=== PATIENT | female | born 1955 | race Caucasian/White ===

== ENCOUNTER → 2016-08-15 | Outpatient (CLI) | payer BC ==
[2016-08-15 16:48] VITALS: BP 111/55; PULSE 66; RESP 16; TEMP 98.3; BMI 37.7
[2016-08-15 18:09] LABS: INR 1.8 (<1.1); Partial Thromboplastin Time 28.3 sec (22.0-30.0)
[2016-08-15 18:27] LABS: Calcium 10.1 mg/dL (8.4-10.2); Phosphorous 4.2 mg/dL (2.5-4.5); Total Bilirubin 0.5 mg/dL (0.2-1.3); Total Protein 7.3 g/dL (6.3-8.2)
[2016-08-15 18:37] LABS: % Iron Saturation 10.9 % (20-50)
[2016-08-15 18:45] LABS: CH 28.1; CHCM 31.2; HCT 39.6 % (34.0-46.0); HDW 2.41; HGB 13.2 gm/dL (11.4-16.0); Hypochromasia Slight; MCH 30.2 pg (25.0-35.0); MCHC 33.4 g/dL (31.0-37.0); MCV 90.3 fL (80.0-100.0); Mean Platelet Volume 10.7; RBC 4.38 m/uL (3.80-5.40); WBC 7.6 k/uL (3.8-10.6)
[2016-08-15 21:19] LABS: Hemoglobin A1C 5.8 % (4.2-6.1)
[2016-08-22 15:38] LABS: Selenium 172 mcg/L (63-160)
--- NOTE | 2016-09-20 04:22 | P.PN ---
Progress Note - Text DATE OF SERVICE: 08/15/2016 CHIEF COMPLAINT: Bariatric assessment. HISTORY OF PRESENT ILLNESS: Lamar Cardoso is a 61-year-old female who comes in following a sleeve gastrectomy February 13, 2016. She is now 6 months out. Her ideal body weight for her 5 feet 7-3/4-inch frame is 158 pounds. Her highest weight was 394 pounds. Today she comes in weighing 246 pounds. She has lost 148 pounds in 6 months. Percent excess weight loss is 63%. Body mass index is reduced from 60.5 down to 37.7. Total BMI point reduction is reduced by 22.8. She is 88 pounds overweight. She reports moderate reduction of swelling of the bilateral lower extremities. She reports her goal is to get down to at least 200 pounds. She reports intermittent dizziness. She has been on her hypertensive medications which had moderately improved. PAST MEDICAL HISTORY: 1. Morbid obesity. 2. Gastroesophageal reflux disease. 3. Dyslipidemia. 4. Cardiomyopathy secondary hypertension. 5. Fibromyalgia. 6. Obstructive sleep apnea. PAST SURGICAL HISTORY: 1. . 2. Cholecystectomy. 3. Joint replacement bilateral knees. 4. Tubal ligation. 5. Excision of cyst removal along the head. 6. Left knee arthroscopy. MEDICATIONS: 1. Coumadin. 2. Omeprazole. 3. Procardia. 4. Multivitamin. 5. Calcium citrate. 6. Lisinopril. ALLERGIES: Denies any drug allergies. SOCIAL HISTORY: Past tobacco user. FAMILY HISTORY: She denies any family history of weight loss procedure. Father had passed when she was 5. History of cardiomyopathy in her family. REVIEW OF SYSTEMS: CONSTITUTIONAL: Her personal weight loss of at least 153 pounds in 9 months; however, 148 pounds from her procedure. Percent excess weight loss is 63%. Body mass index reduced from 60.5 down to 37.7. BMI point reduction of 22.8. HEMATOLOGIC: History of the bilateral lower extremity DVT with bilateral extremity edema, moderately improved. CARDIOVASCULAR: Hypertension improved. Improvement of lower extremity edema. HEENT: No troubles with vision or hearing. ENDOCRINE: Denies any diabetes. There have been no thyroid disorders. RESPIRATORY: Has obstructive sleep apnea evaluation. She has known history of pulmonary embolism as described. GASTROINTESTINAL: She has history of severe gastroesophageal reflux disease. No reports of blood in stools. MUSCULOSKELETAL: Has osteoarthritis of the bilateral knees including lower back. NEURO: No reports of stroke or seizure disorders. PSYCH: No reports of active depression. No suicidal ideation. PHYSICAL EXAM: VITAL SIGNS: 98.3, 66, 16, 111/55, 5-foot 7-3/4-inche frame, 246 pounds. Body mass index 37.7. ABDOMEN: Soft, nontender, nondistended. No large palpable incisional hernias. Hyperemia identified consistent with panniculitis. GENERAL: Well-developed female no acute distress. HEENT: No scleral icterus. Extraocular movements grossly intact. Moist buccal mucosa. NECK: Supple without lymphadenopathy. CHEST: Nonlabored respirations. Equal bilateral excursions. CARDIOVASCULAR: Irregular rate, irregular rhythm. MUSCULOSKELETAL: 1+ bilateral pitting edema. No clubbing or cyanosis. NEURO: No focal or lateralizing signs. PSYCH: Appropriate affect. Alert and oriented to person, place and time. LABS: Bariatric metabolic panel demonstrated an elevated PT of 17.0. INR elevated at 1.8. BUN elevated at 46. Creatinine elevated at 1.3. Iron is low at 33. Selenium elevated at 172. ASSESSMENT: 1. Morbid obesity due to excess calories. 2. Body mass index reduced from 60.5 down to 37.7. 3. Status post massive weight loss, 148 pounds. 4. Hypertensive heart disease with history of congestive heart failure, improved. 5. Personal history of multiple thrombolic events. 6. Osteoarthritis of bilateral knees secondary to morbid obesity, improved. 7. Obstructive sleep apnea. 8. Rheumatoid arthritis. 9. Osteoarthritis of lower back secondary to morbid obesity. . 10. Gastroesophageal reflux disease. 11. Status post sleeve gastrectomy. 12. Iron-deficiency anemia. 13. Elevated selenium. 14. Renal insufficiency. 15. Hypotension with dizziness. 16. Panniculitis. PLAN: 1. She was advised to discontinue her lisinopril, as her blood pressure is fairly low and she is symptomatic. 2. She is doing extremely well with the resolution of her hypertension. 3. She denies any gastroesophageal reflux disease. 4. Recommend nystatin powder for panniculitis. 5. She has completed a bariatric metabolic panel, demonstrating overall excellent nutrition. 6. I have gone over selenium-rich foods and asked her to cut back, as elevated selenium may be linked to hair loss as well. 7. 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
== END | disposition home or self-care (01) ==
LOC: BARWHC3 15:20
PROVIDERS: ATTEND Surgery Plastic and Reconstructive Surgery
DX: Z48.815 Encounter for surgical aftercare following surgery on the digestive system (principal); E66.01 Morbid (severe) obesity due to excess calories; Z68.37 Body mass index [BMI] 37.0-37.9, adult; I11.0 Hypertensive heart disease with heart failure; I50.9 Heart failure, unspecified; Z86.718 Personal history of other venous thrombosis and embolism; M17.0 Bilateral primary osteoarthritis of knee; G47.33 Obstructive sleep apnea (adult) (pediatric); M06.9 Rheumatoid arthritis, unspecified; M47.896 Other spondylosis, lumbar region; K21.9 Gastro-esophageal reflux disease without esophagitis; Z98.84 Bariatric surgery status; D50.9 Iron deficiency anemia, unspecified; R79.89 Other specified abnormal findings of blood chemistry; N28.9 Disorder of kidney and ureter, unspecified; I95.9 Hypotension, unspecified; R42 Dizziness and giddiness; M79.3 Panniculitis, unspecified; E21.1 Secondary hyperparathyroidism, not elsewhere classified; E89.1 Postprocedural hypoinsulinemia; E44.0 Moderate protein-calorie malnutrition; E55.9 Vitamin D deficiency, unspecified; K74.1 Hepatic sclerosis; N19 Unspecified kidney failure; K50.90 Crohn's disease, unspecified, without complications; Z79.01 Long term (current) use of anticoagulants; Z79.899 Other long term (current) drug therapy; Z87.891 Personal history of nicotine dependence
CPT/HCPCS: 80053; 80061; 82306; 82525; 82607; 82728; 82746; 83036; 83540; 83550; 83735; 83970; 84100; 84134; 84255; 84425; 84443; 84590; 84630; 85027; 85610; 85730; 99211

== ENCOUNTER → 2016-12-12 | Outpatient (CLI) | payer BC ==
[2016-12-12 16:30] VITALS: BP 135/61; PULSE 70; RESP 16; TEMP 97.7; BMI 29.1
[2016-12-12 17:49] LABS: CH 29.3; CHCM 33.4; HCT 37.7 % (34.0-46.0); HDW 2.38; HGB 13.2 gm/dL (11.4-16.0); MCH 30.9 pg (25.0-35.0); MCV 88.1 fL (80.0-100.0); Mean Platelet Volume 8.4; RBC 4.28 m/uL (3.80-5.40); RDW 13.4 % (11.5-15.5); WBC 6.6 k/uL (3.8-10.6)
[2016-12-12 18:00] LABS: Partial Thromboplastin Time 25.5 sec (22.0-30.0)
[2016-12-12 18:02] LABS: INR 1.3 (<1.1); Prothrombin Time 12.8 sec (9.0-12.0)
[2016-12-12 18:05] LABS: ALT 38 U/L (9-52); AST 24 U/L (14-36); Alkaline Phosphatase 73 U/L (38-126); Anion Gap 12 mmol/L; Blood Urea Nitrogen 27 mg/dL (7-17); Calcium 9.9 mg/dL (8.4-10.2); Carbon Dioxide 25 mmol/L (22-30); Chloride 103 mmol/L (98-107); Cholesterol 175 mg/dL (<200); Glucose 83 mg/dL (74-99); HDL Cholesterol 64 mg/dL (40-60); Iron 36 ug/dL (37-170); Magnesium 2.1 mg/dL (1.6-2.3); Non-African American GFR(MDRD) >60 (>60 ml/min/1.73 sqM); Phosphorous 4.1 mg/dL (2.5-4.5); Potassium 4.4 mmol/L (3.5-5.1); Sodium 140 mmol/L (137-145); Total Bilirubin 0.5 mg/dL (0.2-1.3)
[2016-12-12 18:43] LABS: % Iron Saturation 13.3 % (20-50); Prealbumin 17 mg/dL (18-36); Total Iron Binding Capacity 270 ug/dL (265-497)
[2016-12-12 19:11] LABS: Vitamin B12 >1000 pg/mL (239-931)
[2016-12-12 20:25] LABS: Hemoglobin A1C 5.5 % (4.2-6.1)
[2016-12-18 16:44] LABS: Selenium 142 mcg/L (63-160)
--- NOTE | 2017-01-12 13:26 | P.PN ---
Progress Note - Text DATE OF SERVICE: 12/12/2016 CHIEF COMPLAINT: Bariatric assessment. HISTORY OF PRESENT ILLNESS: Lamra Cardoso is a 61-year-old female who is status post sleeve gastrectomy February 13, 2016. She is now 10 months out. She has lost 200+ pounds. She has avoided chips including sweets. She is doing great. She is eating her protein. She is walking a mile at least 3 times a week. No reports of gastroesophageal reflux disease. Swelling along her lower extremity is completely resolved. No further reports of dizziness. She has lost another 56 pounds in 4 months. Her ideal body weight for her 5 feet 7-3/4-inch frame is 158 pounds. Her highest weight was 394 pounds. Today she comes in weighing 190 pounds. Percent excess weight loss is 87 %. Body mass index is reduced from 60.5 down to 29.1. Total BMI point reduction is reduced by 31.1. She is 32 pounds overweight. She reports moderate reduction of swelling of the bilateral lower extremities. PAST MEDICAL HISTORY: 1. Morbid obesity. 2. Gastroesophageal reflux disease, resolved. 3. Dyslipidemia, resolved. 4. Cardiomyopathy secondary hypertension. 5. Fibromyalgia. 6. Obstructive sleep apnea, resolved. PAST SURGICAL HISTORY: 1. . 2. Cholecystectomy. 3. Joint replacement bilateral knees. 4. Tubal ligation. 5. Excision of cyst removal along the head. 6. Left knee arthroscopy. 7. Sleeve gastrectomy. MEDICATIONS: 1. Coumadin. 2. Omeprazole, discontinued. 3. Procardia. 4. Multivitamin. 5. Calcium citrate. 6. Lisinopril, discontinued. ALLERGIES: Denies any drug allergies. SOCIAL HISTORY: Past tobacco user. FAMILY HISTORY: She denies any family history of weight loss procedure. Father had passed when she was 5. History of cardiomyopathy in her family. REVIEW OF SYSTEMS: CONSTITUTIONAL: Her ideal body weight for her 5 feet 7-3/4-inch frame is 158 pounds. Her highest weight was 394 pounds. Today she comes in weighing 190 pounds. Percent excess weight loss is 87 %. Body mass index is reduced from 60.5 down to 29.1. Total BMI point reduction is reduced by 31.1. She is 32 pounds overweight. HEMATOLOGIC: History of the bilateral lower extremity DVT with bilateral extremity edema, moderately improved. CARDIOVASCULAR: Hypertension improved. Improvement of lower extremity edema. HEENT: No troubles with vision or hearing. ENDOCRINE: Denies any diabetes. There have been no thyroid disorders. RESPIRATORY: Has obstructive sleep apnea evaluation, resolved. She has known history of pulmonary embolism as described. GASTROINTESTINAL: She has history of severe gastroesophageal reflux disease, now resolved. No reports of blood in stools. No dumping syndrome. MUSCULOSKELETAL: Has osteoarthritis of the bilateral knees including lower back, improved. NEURO: No reports of stroke or seizure disorders. PSYCH: No reports of active depression. No suicidal ideation. SKIN: No skin cancer. No recent rash. PHYSICAL EXAM: VITAL SIGNS: 98.3, 66, 16, 111/55, 5-foot 7-3/4-inche frame, 246 pounds. Body mass index 37.7. ABDOMEN: Soft, nontender, nondistended. No large palpable incisional hernias. Hyperemia identified consistent with panniculitis. GENERAL: Well-developed female no acute distress. HEENT: No scleral icterus. Extraocular movements grossly intact. Moist buccal mucosa. NECK: Supple without lymphadenopathy. CHEST: Nonlabored respirations. Equal bilateral excursions. CARDIOVASCULAR: Irregular rate, irregular rhythm. MUSCULOSKELETAL: No bilateral pitting edema. No clubbing or cyanosis. NEURO: No focal or lateralizing signs. Cranial nerves II-12 grossly intact. PSYCH: Appropriate affect. Alert and oriented to person, place and time. LABS: Laboratory Last Values WBC 6.6 k/uL (3.8-10.6) 12/12/16 17:34 RBC 4.28 m/uL (3.80-5.40) 12/12/16 17:34 Hgb 13.2 gm/dL (11.4-16.0) 12/12/16 17:34 Hct 37.7 % (34.0-46.0) 12/12/16 17:34 MCV 88.1 fL (80.0-100.0) 12/12/16 17:34 MCH 30.9 pg (25.0-35.0) 12/12/16 17:34 MCHC 35.0 g/dL (31.0-37.0) 12/12/16 17:34 RDW 13.4 % (11.5-15.5) 12/12/16 17:34 Plt Count 193 k/uL (150-450) 12/12/16 17:34 PT 12.8 sec (9.0-12.0) H 12/12/16 17:34 INR 1.3 (<1.1) 12/12/16 17:34 APTT 25.5 sec (22.0-30.0) 12/12/16 17:34 Sodium 140 mmol/L (137-145) 12/12/16 17:34 Potassium 4.4 mmol/L (3.5-5.1) 12/12/16 17:34 Chloride 103 mmol/L (98-107) 12/12/16 17:34 Carbon Dioxide 25 mmol/L (22-30) 12/12/16 17:34 Anion Gap 12 mmol/L 12/12/16 17:34 BUN 27 mg/dL (7-17) H 12/12/16 17:34 Creatinine 0.90 mg/dL (0.52-1.04) 12/12/16 17:34 Est GFR (MDRD) Af Amer >60 (>60 ml/min/1.73 sqM) 12/12/16 17:34 Est GFR (MDRD) Non-Af >60 (>60 ml/min/1.73 sqM) 12/12/16 17:34 Glucose 83 mg/dL (74-99) 12/12/16 17:[address] Glu mg/dL 111 mg/dL 12/12/16 17:34 Hemoglobin A1c 5.5 % (4.2-6.1) 12/12/16 17:34 Calcium 9.9 mg/dL (8.4-10.2) 12/12/16 17:34 Phosphorus 4.1 mg/dL (2.5-4.5) 12/12/16 17:34 Magnesium 2.1 mg/dL (1.6-2.3) 12/12/16 17:34 Iron 36 ug/dL (37-170) L 12/12/16 17:34 TIBC 270 ug/dL (265-497) 12/12/16 17:34 % Saturation 13.3 % (20-50) L 12/12/16 17:34 Ferritin 115 ng/mL (11-264) 12/12/16 17:34 Total Bilirubin 0.5 mg/dL (0.2-1.3) 12/12/16 17:34 AST 24 U/L (14-36) 12/12/16 17:34 ALT 38 U/L (9-52) 12/12/16 17:34 Alkaline Phosphatase 73 U/L (38-126) 12/12/16 17:34 Total Protein 7.0 g/dL (6.3-8.2) 12/12/16 17:34 Albumin 4.4 g/dL (3.5-5.0) 12/12/16 17:34 Prealbumin 17 mg/dL (18-36) L 12/12/16 17:34 Triglycerides 101 mg/dL (<150) 12/12/16 17:34 Cholesterol 175 mg/dL (<200) 12/12/16 17:34 LDL Cholesterol, Calc 91 mg/dL (0-99) 12/12/16 17:34 HDL Cholesterol 64 mg/dL (40-60) H 12/12/16 17:34 Vitamin A 41 ug/dL (38-106) 12/12/16 17:34 Vitamin B1 59 ug/L (38-122) 12/12/16 17:34 Vitamin B12 >1000 pg/mL (239-931) H 12/12/16 17:34 Vitamin D 25-Hydroxy 41.0 ng/mL (30.0-100.0) 12/12/16 17:34 Folate >20.00 ng/mL (>2.75) 12/12/16 17:34 TSH 1.590 mIU/L (0.465-4.680) 12/12/16:34 PTH Intact 34.8 pg/mL (14.0-72.0) 12/12/16 17:34 Copper 1532 ug/L (810-1990) 12/12/16 17:34 Selenium 142 mcg/L (63-160) 12/12/16 17:34 Zinc 72 ug/dL (60-130) 12/12/16 17:34 ASSESSMENT: 1. Morbid obesity due to excess calories. 2. Body mass index reduced from 60.5 down to 29.1. 3. Status post massive weight loss, 204 pounds. 4. Hypertensive heart disease with history of congestive heart failure, improved. 5. Personal history of multiple thrombolic events. 6. Osteoarthritis of bilateral knees secondary to morbid obesity, improved. 7. Obstructive sleep apnea, resolved. 8. Rheumatoid arthritis. 9. Osteoarthritis of lower back secondary to morbid obesity. 10. Gastroesophageal reflux disease, resolved. 11. Status post sleeve gastrectomy. 12. Iron-deficiency anemia. 13. Panniculitis. 14. Renal insufficiency. PLAN: 1. Recommended bariatric metabolic panel. 2. Multivitamins recommended. 3. Follow up at the [place] office in 2-3 weeks. 4. Recommend protein intake of 60 g daily. 5. Recommend iron supplement.
== END | disposition home or self-care (01) ==
LOC: BARWHC3 16:12
PROVIDERS: ATTEND Surgery Plastic and Reconstructive Surgery
DX: Z48.815 Encounter for surgical aftercare following surgery on the digestive system (principal); I11.9 Hypertensive heart disease without heart failure; M17.0 Bilateral primary osteoarthritis of knee; M06.9 Rheumatoid arthritis, unspecified; M47.816 Spondylosis without myelopathy or radiculopathy, lumbar region; D50.9 Iron deficiency anemia, unspecified; M79.3 Panniculitis, unspecified; N28.9 Disorder of kidney and ureter, unspecified; I15.9 Secondary hypertension, unspecified; I42.9 Cardiomyopathy, unspecified; E21.1 Secondary hyperparathyroidism, not elsewhere classified; E89.1 Postprocedural hypoinsulinemia; D50.8 Other iron deficiency anemias; K90.9 Intestinal malabsorption, unspecified; E55.9 Vitamin D deficiency, unspecified; K76.9 Liver disease, unspecified; N19 Unspecified kidney failure; K50.90 Crohn's disease, unspecified, without complications; E66.01 Morbid (severe) obesity due to excess calories; Z68.29 Body mass index [BMI] 29.0-29.9, adult; Z79.01 Long term (current) use of anticoagulants; Z79.899 Other long term (current) drug therapy; Z98.84 Bariatric surgery status
CPT/HCPCS: 36415; 80053; 80061; 82306; 82525; 82607; 82728; 82746; 83036; 83540; 83550; 83735; 83970; 84100; 84134; 84255; 84425; 84443; 84590; 84630; 85027; 85610; 85730; 97803; 99211

== ENCOUNTER → 2017-05-16 | Outpatient (CLI) | payer BC ==
[2017-05-16 12:19] VITALS: BP 134/84; PULSE 72; RESP 16; TEMP 97.6; BMI 23.0
--- NOTE | 2017-07-02 07:27 | P.PN ---
Subjective Progress Note Date: 05/16/17 come off coumadin.... August 2017.... lose panniculectomy reviewed... referral to garage supervisor.... [facility] in august DATE OF SERVICE: 05/16/2017 CHIEF COMPLAINT: Follow-up sleeve gastrectomy. HISTORY OF PRESENT ILLNESS: Lamar Cardoso is a 61-year-old female who is status post sleeve gastrectomy February 13, 2016. She is now over one year out. She has lost 244 pounds. She denies any abdominal pain. No reports of dumping syndrome. No reports of gastroesophageal reflux disease. In fact, her bilateral lower extremity edema has completely resolved. Her main concern today includes recurrent panniculitis following her weight loss. She has been using nystatin powder for over a year without improvement. She is off her CPAP machine. Hypertension is resolved. Since her last visit 5 months ago, she lost another 40 pounds. Her ideal body weight for her 5 feet 7-3/4-inch frame is 158 pounds. Her highest weight was 394 pounds. Today she comes in weighing 150 pounds. Percent excess weight loss is 103 %. Body mass index is reduced from 60.5 down to 23.0. Total BMI point reduction is reduced by 37.5. PAST MEDICAL HISTORY: 1. Morbid obesity. 2. Gastroesophageal reflux disease, resolved. 3. Dyslipidemia, resolved. 4. Cardiomyopathy secondary hypertension. 5. Fibromyalgia. 6. Obstructive sleep apnea, resolved. PAST SURGICAL HISTORY: 1. . 2. Cholecystectomy. 3. Joint replacement bilateral knees. 4. Tubal ligation. 5. Excision of cyst removal along the head. 6. Left knee arthroscopy. 7. Sleeve gastrectomy. MEDICATIONS: 1. Coumadin. 2. Omeprazole, discontinued. 3. Procardia, discontinued. 4. Multivitamin. 5. Calcium citrate. 6. Lisinopril, discontinued. ALLERGIES: Denies any drug allergies. SOCIAL HISTORY: Past tobacco user. FAMILY HISTORY: She denies any family history of weight loss procedure. Father had passed when she was 5. History of cardiomyopathy in her family. REVIEW OF SYSTEMS: CONSTITUTIONAL: Her ideal body weight for her 5 feet 7-3/4-inch frame is 158 pounds. Her highest weight was 394 pounds. Today she comes in weighing 150 pounds. Percent excess weight loss is 103 %. Body mass index is reduced from 60.5 down to 23.0. Total BMI point reduction is reduced by 37.5. HEMATOLOGIC: History of the bilateral lower extremity DVT with bilateral extremity edema, moderately improved. CARDIOVASCULAR: Hypertension improved. Improvement of lower extremity edema. HEENT: No troubles with vision or hearing. ENDOCRINE: Denies any diabetes. There have been no thyroid disorders. RESPIRATORY: Has obstructive sleep apnea evaluation, resolved. She has known history of pulmonary embolism as described. GASTROINTESTINAL: She has history of severe gastroesophageal reflux disease, now resolved. No reports of blood in stools. No dumping syndrome. MUSCULOSKELETAL: Has osteoarthritis of the bilateral knees including lower back, improved. NEURO: No reports of stroke or seizure disorders. PSYCH: No reports of active depression. No suicidal ideation. SKIN: No skin cancer. No recent rash. PHYSICAL EXAM: VITAL SIGNS: 5-foot 7-3/4-inche frame, 150 pounds. Body mass index 23.0. Vital Signs Temp 97.6 F 05/16/17 12:18 Pulse 72 05/16/17 12:18 Resp 16 05/16/17 12:18 BP 134/84 05/16/17 12:18 Pulse Ox ABDOMEN: Soft, nontender, nondistended. No large palpable incisional hernias. Hyperemia identified consistent with panniculitis. GENERAL: Well-developed female no acute distress. HEENT: No scleral icterus. Extraocular movements grossly intact. Moist buccal mucosa. NECK: Supple without lymphadenopathy. CHEST: Nonlabored respirations. Equal bilateral excursions. CARDIOVASCULAR: Irregular rate, irregular rhythm. MUSCULOSKELETAL: No bilateral pitting edema. No clubbing or cyanosis. NEURO: No focal or lateralizing signs. Cranial nerves II-12 grossly intact. PSYCH: Appropriate affect. Alert and oriented to person, place and time. LABS: Previous labs reviewed demonstrating low iron and prealbumin was low. Laboratory Last Values WBC 6.6 k/uL (3.8-10.6) 12/12/16 17:34 RBC 4.28 m/uL (3.80-5.40) 12/12/16 17:34 Hgb 13.2 gm/dL (11.4-16.0) 12/12/16 17:34 Hct 37.7 % (34.0-46.0) 12/12/16 17:34 MCV 88.1 fL (80.0-100.0) 12/12/16 17:34 MCH 30.9 pg (25.0-35.0) 12/12/16 17:34 MCHC 35.0 g/dL (31.0-37.0) 12/12/16 17:34 RDW 13.4 % (11.5-15.5) 12/12/16 17:34 Plt Count 193 k/uL (150-450) 12/12/16 17:34 PT 12.8 sec (9.0-12.0) H 12/12/16 17:34 INR 1.3 (<1.1) 12/12/16 17:34 APTT 25.5 sec (22.0-30.0) 12/12/16 17:34 Sodium 140 mmol/L (137-145) 12/12/16 17:34 Potassium 4.4 mmol/L (3.5-5.1) 12/12/16 17:34 Chloride 103 mmol/L (98-107) 12/12/16 17:34 Carbon Dioxide 25 mmol/L (22-30) 12/12/16 17:34 Anion Gap 12 mmol/L 12/12/16 17:34 BUN 27 mg/dL (7-17) H 12/12/16 17:34 Creatinine 0.90 mg/dL (0.52-1.04) 12/12/16 17:34 Est GFR (MDRD) Af Amer >60 (>60 ml/min/1.73 sqM) 12/12/16 17:34 Est GFR (MDRD) Non-Af >60 (>60 ml/min/1.73 sqM) 12/12/16 17:34 Glucose 83 mg/dL (74-99) 12/12/16 17:[address] Glu mg/dL 111 mg/dL 12/12/16 17:34 Hemoglobin A1c 5.5 % (4.2-6.1) 12/12/16 17:34 Calcium 9.9 mg/dL (8.4-10.2) 12/12/16 17:34 Phosphorus 4.1 mg/dL (2.5-4.5) 12/12/16 17:34 Magnesium 2.1 mg/dL (1.6-2.3) 12/12/16 17:34 Iron 36 ug/dL (37-170) L 12/12/16 17:34 TIBC 270 ug/dL (265-497) 12/12/16 17:34 % Saturation 13.3 % (20-50) L 12/12/16 17:34 Ferritin 115 ng/mL (11-264) 12/12/16 17:34 Total Bilirubin 0.5 mg/dL (0.2-1.3) 12/12/16 17:34 AST 24 U/L (14-36) 12/12/16 17:34 ALT 38 U/L (9-52) 12/12/16 17:34 Alkaline Phosphatase 73 U/L (38-126) 12/12/16 17:34 Total Protein 7.0 g/dL (6.3-8.2) 12/12/16 17:34 Albumin 4.4 g/dL (3.5-5.0) 12/12/16 17:34 Prealbumin 17 mg/dL (18-36) L 12/12/16 17:34 Triglycerides 101 mg/dL (<150) 12/12/16 17:34 Cholesterol 175 mg/dL (<200) 12/12/16 17:34 LDL Cholesterol, Calc 91 mg/dL (0-99) 12/12/16 17:34 HDL Cholesterol 64 mg/dL (40-60) H 12/12/16 17:34 Vitamin A 41 ug/dL (38-106) 12/12/16 17:34 Vitamin B1 59 ug/L (38-122) 12/12/16 17:34 Vitamin B12 >1000 pg/mL (239-931) H 12/12/16 17:34 Vitamin D 25-Hydroxy 41.0 ng/mL (30.0-100.0) 12/12/16 17:34 Folate >20.00 ng/mL (>2.75) 12/12/16 17:34 TSH 1.590 mIU/L (0.465-4.680) 12/12/16 17:34 PTH Intact 34.8 pg/mL (14.0-72.0) 12/12/16 17:34 Copper 1532 ug/L (810-1990) 12/12/16 17:34 Selenium 142 mcg/L (63-160) 12/12/16 17:34 Zinc 72 ug/dL (60-130) 12/12/16 17:34 ASSESSMENT: 1. Morbid obesity due to excess calories. 2. Body mass index reduced from 60.5 down to 23.0. 3. Status post massive weight loss, 244 pounds. 4. Hypertensive heart disease with history of congestive heart failure, improved. 5. Personal history of multiple thrombolic events. 6. Osteoarthritis of bilateral knees secondary to morbid obesity, improved. 7. Obstructive sleep apnea, resolved. 8. Rheumatoid arthritis. 9. Osteoarthritis of lower back secondary to morbid obesity. 10. Gastroesophageal reflux disease, resolved. 11. Status post sleeve gastrectomy. 12. Iron-deficiency anemia. 13. Panniculitis. 14. Renal insufficiency, resolved. PLAN: 1. She has recurrent panniculitis despite treatment over one year. Recommend evaluation for panniculectomy. 2. A panniculectomy packet was reviewed including risks of bleeding, infection , postoperative seromas, chronic abdominal pain and cosmetic deformity. 3. Recommend final bariatric panel one year post procedure. 4. Will need inpatient hospitalization overnight for pain control. 5. DVT prophylaxis. 6. Antibiotic prophylaxis. 7. In the interim, nystatin powder advised. Objective - Vital Signs Vital signs: Vital Signs Temp 97.6 F 05/16/17 12:18 Pulse 72 05/16/17 12:18 Resp 16 05/16/17 12:18 BP 134/84 05/16/17 12:18 Pulse Ox Intake & Output 05/15/17 05/16/17 05/16/17 18:59 06:59 18:59 Weight 68.084 kg
== END | disposition home or self-care (01) ==
LOC: BARWHC3 11:20
PROVIDERS: ATTEND Surgery Plastic and Reconstructive Surgery
DX: Z48.815 Encounter for surgical aftercare following surgery on the digestive system (principal); E66.01 Morbid (severe) obesity due to excess calories; R63.4 Abnormal weight loss; I11.9 Hypertensive heart disease without heart failure; M17.0 Bilateral primary osteoarthritis of knee; M06.9 Rheumatoid arthritis, unspecified; M47.816 Spondylosis without myelopathy or radiculopathy, lumbar region; D50.9 Iron deficiency anemia, unspecified; M79.3 Panniculitis, unspecified; Z68.23 Body mass index [BMI] 23.0-23.9, adult; Z87.891 Personal history of nicotine dependence; Z79.01 Long term (current) use of anticoagulants; Z79.899 Other long term (current) drug therapy; Z90.49 Acquired absence of other specified parts of digestive tract; Z86.79 Personal history of other diseases of the circulatory system; Z86.718 Personal history of other venous thrombosis and embolism; Z98.890 Other specified postprocedural states; Z98.84 Bariatric surgery status
CPT/HCPCS: 97803; 99211

== ENCOUNTER → 2017-08-14 | Outpatient (CLI) | payer BC ==
[2017-08-14 17:44] VITALS: BP 120/71; PULSE 64; TEMP 97.9
[2017-08-14 18:07] VITALS: BMI 21.9
--- NOTE | 2017-09-27 12:24 | P.PN ---
Subjective Progress Note Date: 08/14/17 DATE OF SERVICE: 08/14/2017 CHIEF COMPLAINT: Follow-up sleeve gastrectomy. HISTORY OF PRESENT ILLNESS: Lamar Cardoso is a 62-year-old female who is status post sleeve gastrectomy February 13, 2016. She is now over one year out. Her highest weight was 394 pounds. Today she comes in weighing 143 pounds. Her ideal body weight for her 5 feet 7-3/4-inch frame is 158 pounds. Percent excess weight loss is 106 %. Body mass index is reduced from 60.5 down to 21.9. She has lost 251 pounds. Total BMI point reduction is reduced by 38.5. 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 She has been using nystatin powder for over 2 years. She comes in for evaluation for panniculectomy for medical refractory panniculitis. No reports of gastroesophageal reflux disease. Swelling of lower extremities completely resolved. She is off hypertensive medications. No further obstructive sleep apnea. PAST MEDICAL HISTORY: 1. Morbid obesity. 2. Gastroesophageal reflux disease, resolved. 3. Dyslipidemia, resolved. 4. Cardiomyopathy secondary hypertension. 5. Fibromyalgia. 6. Obstructive sleep apnea, resolved. PAST SURGICAL HISTORY: 1. . 2. Cholecystectomy. 3. Joint replacement bilateral knees. 4. Tubal ligation. 5. Excision of cyst removal along the head. 6. Left knee arthroscopy. 7. Sleeve gastrectomy. MEDICATIONS: 1. Coumadin. 2. Omeprazole 3. Multivitamin. 4. Calcium citrate. ALLERGIES: Denies any drug allergies. SOCIAL HISTORY: Past tobacco user. FAMILY HISTORY: She denies any family history of weight loss procedure. Father had passed when she was 5. History of cardiomyopathy in her family. REVIEW OF SYSTEMS: CONSTITUTIONAL: Her highest weight was 394 pounds. Today she comes in weighing 143 pounds. Her ideal body weight for her 5 feet 7-3/4-inch frame is 158 pounds. Percent excess weight loss is 106 %. Body mass index is reduced from 60.5 down to 21.9. She has lost 251 pounds. HEMATOLOGIC: History of the bilateral lower extremity DVT with bilateral extremity edema, moderately improved. She is on Coumadin. CARDIOVASCULAR: Hypertension improved. She is off hypertensive medications. Improvement of lower extremity edema. HEENT: No troubles with vision or hearing. ENDOCRINE: Denies any diabetes. There have been no thyroid disorders. RESPIRATORY: Has obstructive sleep apnea evaluation, resolved. She has known history of pulmonary embolism as described. GASTROINTESTINAL: She has history of severe gastroesophageal reflux disease, now improved. No reports of blood in stools. No dumping syndrome. MUSCULOSKELETAL: Has osteoarthritis of the bilateral knees including lower back, improved. NEURO: No reports of stroke or seizure disorders. PSYCH: No reports of active depression. No suicidal ideation. SKIN: No skin cancer. No recent rash. PHYSICAL EXAM: VITAL SIGNS: 5-foot 7-3/4-inche frame, 143 pounds. Body mass index 21.9. Vital Signs Temp 97.9 F 08/14/17 17:57 Pulse 64 08/14/17 17:57 Resp BP 120/71 08/14/17 17:57 Pulse Ox ABDOMEN: Soft, nontender, nondistended. No large palpable incisional hernias. Hyperemia identified consistent with panniculitis. Weight of pannus, 10 + pounds. Pannus over pubis, 6 cm. GENERAL: Well-developed female no acute distress. HEENT: No scleral icterus. Extraocular movements grossly intact. Moist buccal mucosa. NECK: Supple without lymphadenopathy. CHEST: Nonlabored respirations. Equal bilateral excursions. CARDIOVASCULAR: Regular rate, regular rhythm. 2+ radial pulses. MUSCULOSKELETAL: No bilateral pitting edema. No clubbing or cyanosis. NEURO: No focal or lateralizing signs. Cranial nerves II-12 grossly intact. PSYCH: Appropriate affect. Alert and oriented to person, place and time. SKIN: Well performed. Good skin turgor. LABS: Previous labs reviewed adequate protein intake. ASSESSMENT: 1. Morbid obesity due to excess calories. 2. Body mass index reduced from 60.5 down to 21.9 3. Status post massive weight loss, 251 pounds. 4. Hypertensive heart disease with history of congestive heart failure, resolved. 5. Personal history of multiple thrombolic events. 6. Osteoarthritis of bilateral knees secondary to morbid obesity, resolved. 7. Obstructive sleep apnea, resolved. 8. Bilateral lower extremity edema, resolved 9. Osteoarthritis of lower back secondary to morbid obesity. 10. Gastroesophageal reflux disease, resolved. 11. Status post sleeve gastrectomy. 12. Iron-deficiency anemia. 13. Panniculitis. 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 She has severe panniculitis including skin elastosis with functional impairment. 2. She has successfully lost over 250+ pounds with sustained weight loss. 3. Despite Nystatin powder and treatment for over 1 year, recommend panniculectomy. Benefits and risks of bleeding, infection, flap failure, pain, and need for further surgery was described. 4. DVT prophylaxis. 5. Antibiotic prophylaxis. Objective - Vital Signs Vital signs: Vital Signs Temp 97.9 F 08/14/17 17:39 Pulse 64 08/14/17 17:39 Resp BP 120/71 08/14/17 17:39 Pulse Ox Intake & Output 08/13/17 08/14/17 08/14/17 18:59 06:59 18:59 Weight 64.909 kg
== END | disposition home or self-care (01) ==
LOC: BARWHC3 16:05
PROVIDERS: ATTEND Surgery Plastic and Reconstructive Surgery
DX: Z48.815 Encounter for surgical aftercare following surgery on the digestive system (principal); E66.01 Morbid (severe) obesity due to excess calories; R63.4 Abnormal weight loss; M47.9 Spondylosis, unspecified; D50.9 Iron deficiency anemia, unspecified; M79.3 Panniculitis, unspecified; L57.8 Other skin changes due to chronic exposure to nonionizing radiation; I42.9 Cardiomyopathy, unspecified; M79.7 Fibromyalgia; Z90.49 Acquired absence of other specified parts of digestive tract; Z96.653 Presence of artificial knee joint, bilateral; Z98.51 Tubal ligation status; Z98.890 Other specified postprocedural states; Z79.01 Long term (current) use of anticoagulants; Z79.899 Other long term (current) drug therapy; Z68.21 Body mass index [BMI] 21.0-21.9, adult; Z98.84 Bariatric surgery status; Z86.718 Personal history of other venous thrombosis and embolism; Z72.0 Tobacco use
CPT/HCPCS: 99211

== ENCOUNTER → 2017-10-02 | Outpatient (CLI) | payer BC ==
[2017-10-02 16:16] VITALS: BP 129/67; PULSE 80; RESP 16; TEMP 98; BMI 21.2
[2017-10-02 16:33] LABS: HCT 35.9 % (34.0-46.0); HGB 12.2 gm/dL (11.4-16.0); MCH 30.7 pg (25.0-35.0); MCHC 34.1 g/dL (31.0-37.0); MCV 90.2 fL (80.0-100.0); Mean Platelet Volume 7.2; Platelet Count 191 k/uL (150-450); RBC 3.98 m/uL (3.80-5.40); RDW 12.3 % (11.5-15.5); WBC 4.2 k/uL (3.8-10.6)
[2017-10-02 16:44] LABS: INR 1.1 (<1.2); Partial Thromboplastin Time 23.6 sec (22.0-30.0); Prothrombin Time 10.3 sec (9.0-12.0)
[2017-10-02 17:14] LABS: ALT 45 U/L (9-52); AST 34 U/L (14-36); Albumin 4.2 g/dL (3.5-5.0); Alkaline Phosphatase 51 U/L (38-126); Anion Gap 12 mmol/L; Blood Urea Nitrogen 23 mg/dL (7-17); Calcium 9.8 mg/dL (8.4-10.2); Carbon Dioxide 25 mmol/L (22-30); Chloride 98 mmol/L (98-107); Glucose 130 mg/dL (74-99); Potassium 4.4 mmol/L (3.5-5.1); Sodium 135 mmol/L (137-145); Total Bilirubin 0.4 mg/dL (0.2-1.3); Total Protein 6.4 g/dL (6.3-8.2)
--- NOTE | 2017-10-02 17:32 | P.PN ---
Subjective Progress Note Date: 10/02/17 DATE OF SERVICE: 10/02/2017 CHIEF COMPLAINT: Follow-up sleeve gastrectomy. HISTORY OF PRESENT ILLNESS: Lamar Cardoso is a 62-year-old female who is status post sleeve gastrectomy February 13, 2016. She is now 1.5 years out. Her highest weight was 394 pounds. Today she comes in weighing 138 pounds from 143 pounds since her last visit 08/14/2017. She has lost 5 pounds in 2 months. Her ideal body weight for her 5 feet 7-3/4-inch frame is 158 pounds. Percent excess weight loss is 108 %. Body mass index is reduced from 60.5 down to 21.2. She has lost 256 pounds. Total BMI point reduction is reduced by 39.3. 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 She has been using nystatin powder for over 2 years. She comes in for evaluation for panniculectomy for medical refractory panniculitis. No reports of gastroesophageal reflux disease. Swelling of lower extremities has completely resolved. She is off hypertensive medications. No further obstructive sleep apnea. PAST MEDICAL HISTORY: 1. Morbid obesity, BMI 60.5, initial 2. Gastroesophageal reflux disease, resolved. 3. Dyslipidemia, resolved. 4. Cardiomyopathy secondary hypertension. 5. Fibromyalgia. 6. Obstructive sleep apnea, resolved. PAST SURGICAL HISTORY: 1. . 2. Cholecystectomy. 3. Joint replacement bilateral knees. 4. Tubal ligation. 5. Excision of cyst removal along the head. 6. Left knee arthroscopy. 7. Sleeve gastrectomy. MEDICATIONS: 1. Coumadin. 2. Omeprazole 3. Multivitamin. 4. Calcium citrate. ALLERGIES: Denies any drug allergies. SOCIAL HISTORY: Past tobacco user. FAMILY HISTORY: She denies any family history of weight loss procedure. Father had passed when she was 5. History of cardiomyopathy in her family. REVIEW OF SYSTEMS: CONSTITUTIONAL: Her highest weight was 394 pounds. Today she comes in weighing 138 pounds from 143 pounds since her last visit 08/14/2017. She has lost 5 pounds in 2 months. Her ideal body weight for her 5 feet 7-3/4-inch frame is 158 pounds. Percent excess weight loss is 108 %. Body mass index is reduced from 60.5 down to 21.2. She has lost 256 pounds. Total BMI point reduction is reduced by 39.3. HEMATOLOGIC: History of the bilateral lower extremity DVT with bilateral extremity edema, moderately improved. She is on Coumadin. CARDIOVASCULAR: Hypertension improved. She is off hypertensive medications. Improvement of lower extremity edema. HEENT: No troubles with vision or hearing. ENDOCRINE: Denies any diabetes. There have been no thyroid disorders. RESPIRATORY: Has obstructive sleep apnea evaluation, resolved. She has known history of pulmonary embolism as described. GASTROINTESTINAL: She has history of severe gastroesophageal reflux disease, now improved. No reports of blood in stools. No dumping syndrome. MUSCULOSKELETAL: Has osteoarthritis of the bilateral knees including lower back, improved. NEURO: No reports of stroke or seizure disorders. PSYCH: No reports of active depression. No suicidal ideation. SKIN: No skin cancer. No recent rash. PHYSICAL EXAM: VITAL SIGNS: 5-foot 7-3/4-inche frame, 138 pounds. Body mass index 21.2 Vital Signs Temp 98 F 10/02/17 16:13 Pulse 80 10/02/17 16:13 Resp 16 10/02/17 16:13 BP 129/67 10/02/17 16:13 Pulse Ox Intake & Output 10/01/17 10/02/17 10/02/17 18:59 06:59 18:59 Weight 62.766 kg ABDOMEN: Soft, nontender, nondistended. No large palpable incisional hernias. Hyperemia identified consistent with panniculitis. Weight of pannus, 10 + pounds. Pannus over pubis, 6 cm. GENERAL: Well-developed female no acute distress. HEENT: No scleral icterus. Extraocular movements grossly intact. Moist buccal mucosa. NECK: Supple without lymphadenopathy. CHEST: Nonlabored respirations. Equal bilateral excursions. CARDIOVASCULAR: Regular rate, regular rhythm. 2+ radial pulses. MUSCULOSKELETAL: No bilateral pitting edema. No clubbing or cyanosis. NEURO: No focal or lateralizing signs. Cranial nerves II-12 grossly intact. PSYCH: Appropriate affect. Alert and oriented to person, place and time. SKIN: Well performed. Good skin turgor. LABS: Previous labs reviewed adequate protein intake. ASSESSMENT: 1. Morbid obesity due to excess calories. 2. Body mass index reduced from 60.5 down to 21.2 3. Status post massive weight loss, 251 pounds. 4. Hypertensive heart disease with history of congestive heart failure, resolved. 5. Personal history of multiple thrombolic events. 6. Osteoarthritis of bilateral knees secondary to morbid obesity, resolved. 7. Obstructive sleep apnea, resolved. 8. Bilateral lower extremity edema, resolved 9. Osteoarthritis of lower back secondary to morbid obesity. 10. Gastroesophageal reflux disease, resolved. 11. Status post sleeve gastrectomy. 12. Iron-deficiency anemia. 13. Panniculitis. 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 Benefits and risks of surgery were reviewed for panniculectomy. 2. Possible overnight stay for pain control. 3. Stop Eliquis 2 days before day of surgery. Last dose on Saturday. 4. Drain management reviewed. 5. Time of recovery 6 to 8 weeks. 6. DVT prophylaxis. 7. Antibiotic prophylaxis. 8. Risks including flap failure, seroma, pain, infection, drain placement were reviewed. Objective - Vital Signs Vital signs: Vital Signs Temp 98 F 10/02/17 16:13 Pulse 80 10/02/17 16:13 Resp 16 10/02/17 16:13 BP 129/67 10/02/17 16:13 Pulse Ox Intake & Output 10/01/17 10/02/17 10/02/17 18:59 06:59 18:59 Weight 62.766 kg - Labs CBC & Chem 7: 10/02/17 15:27 10/02/17 15:27 Labs: Abnormal Lab Results - Last 24 Hours (Table) 10/02/17 Range/Units 15:27 Sodium 135 L (137-145) mmol/L BUN 23 H (7-17) mg/dL Glucose 130 H (74-99) mg/dL
[2017-10-03 02:02] LABS: Parathyroid Hormone Intact 34.8 pg/mL (14.0-72.0)
[2017-10-03 02:03] LABS: Vitamin D 25 Hydroxy 44.5 ng/mL (30.0-100.0)
[2017-10-03 04:41] LABS: Hemoglobin A1C 5.2 % (4.0-6.0)
[2017-10-03 11:25] LABS: Zinc, Serum 79 ug/dL (60-130)
[2017-10-03 11:39] LABS: Iron Saturation 26.16 (12.00-45.00)
[2017-10-04 17:17] LABS: Selenium 159 mcg/L (63-160)
== END | disposition home or self-care (01) ==
LOC: BARWHC3 15:24
PROVIDERS: ATTEND Surgery Plastic and Reconstructive Surgery
DX: Z09 Encounter for follow-up examination after completed treatment for conditions other than malignant neoplasm (principal); E66.01 Morbid (severe) obesity due to excess calories; R63.4 Abnormal weight loss; M47.9 Spondylosis, unspecified; D50.9 Iron deficiency anemia, unspecified; M79.3 Panniculitis, unspecified; L57.8 Other skin changes due to chronic exposure to nonionizing radiation; M79.7 Fibromyalgia; Z90.49 Acquired absence of other specified parts of digestive tract; Z68.21 Body mass index [BMI] 21.0-21.9, adult; Z86.718 Personal history of other venous thrombosis and embolism; Z98.84 Bariatric surgery status; Z98.890 Other specified postprocedural states; Z79.01 Long term (current) use of anticoagulants; Z96.653 Presence of artificial knee joint, bilateral
CPT/HCPCS: 80053; 82306; 82525; 82728; 82746; 83036; 83540; 83550; 83970; 84134; 84255; 84443; 84630; 85027; 85610; 85730; 99211

== ENCOUNTER 2017-10-14 10:10 | Inpatient (IN) | payer BC ==
--- NOTE | 2017-10-14 08:08 | P.GSHP ---
History of Present Illness H&P Date: 10/14/17 DATE OF SERVICE: 10/14/2017 CHIEF COMPLAINT: Panniculitis. HISTORY OF PRESENT ILLNESS: Lamar Cardoso is a 62-year-old female who is status post sleeve gastrectomy February 13, 2016. She is now 1.5 years out. Her highest weight was 394 pounds. Today she comes in weighing 140 pounds. Her ideal body weight for her 5 feet 7-3/4-inch frame is 158 pounds. Percent excess weight loss is 108 %. Body mass index is reduced from 60.5 down to 21.2. She has lost 254 pounds. 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 She comes in for panniculectomy. PAST MEDICAL HISTORY: 1. Morbid obesity, BMI 60.5, initial 2. Gastroesophageal reflux disease, resolved. 3. Dyslipidemia, resolved. 4. Cardiomyopathy secondary hypertension. 5. Fibromyalgia. 6. Obstructive sleep apnea, resolved. PAST SURGICAL HISTORY: 1. . 2. Cholecystectomy. 3. Joint replacement bilateral knees. 4. Tubal ligation. 5. Excision of cyst removal along the head. 6. Left knee arthroscopy. 7. Sleeve gastrectomy. MEDICATIONS: 1. Coumadin. 2. Omeprazole 3. Multivitamin. 4. Calcium citrate. ALLERGIES: Denies any drug allergies. SOCIAL HISTORY: Past tobacco user. FAMILY HISTORY: She denies any family history of weight loss procedure. Father had passed when she was 5. History of cardiomyopathy in her family. REVIEW OF SYSTEMS: CONSTITUTIONAL: Her highest weight was 394 pounds. Today she comes in weighing 138 pounds from 143 pounds since her last visit 08/14/2017. She has lost 5 pounds in 2 months. Her ideal body weight for her 5 feet 7-3/4-inch frame is 158 pounds. Percent excess weight loss is 108 %. Body mass index is reduced from 60.5 down to 21.2. She has lost 256 pounds. Total BMI point reduction is reduced by 39.3. HEMATOLOGIC: History of the bilateral lower extremity DVT with bilateral extremity edema, moderately improved. She is on Coumadin. CARDIOVASCULAR: Hypertension improved. She is off hypertensive medications. Improvement of lower extremity edema. HEENT: No troubles with vision or hearing. ENDOCRINE: Denies any diabetes. There have been no thyroid disorders. RESPIRATORY: Has obstructive sleep apnea evaluation, resolved. She has known history of pulmonary embolism as described. GASTROINTESTINAL: She has history of severe gastroesophageal reflux disease, now improved. No reports of blood in stools. No dumping syndrome. MUSCULOSKELETAL: Has osteoarthritis of the bilateral knees including lower back, improved. NEURO: No reports of stroke or seizure disorders. PSYCH: No reports of active depression. No suicidal ideation. SKIN: No skin cancer. No recent rash. PHYSICAL EXAM: VITAL SIGNS: 5-foot 7-3/4-inche frame, 140 pounds. Body mass index 21.3 ABDOMEN: Soft, nontender, nondistended. No large palpable incisional hernias. Hyperemia identified consistent with panniculitis. Weight of pannus, 10 + pounds. Pannus over pubis, 6 cm. GENERAL: Well-developed female no acute distress. HEENT: No scleral icterus. Extraocular movements grossly intact. Moist buccal mucosa. NECK: Supple without lymphadenopathy. CHEST: Nonlabored respirations. Equal bilateral excursions. CARDIOVASCULAR: Regular rate, regular rhythm. 2+ radial pulses. MUSCULOSKELETAL: No bilateral pitting edema. No clubbing or cyanosis. NEURO: No focal or lateralizing signs. Cranial nerves II-12 grossly intact. PSYCH: Appropriate affect. Alert and oriented to person, place and time. SKIN: Well performed. Good skin turgor. LABS: Previous labs reviewed adequate protein intake. ASSESSMENT: 1. Morbid obesity due to excess calories. 2. Body mass index reduced from 60.5 down to 21.2 3. Status post massive weight loss, 251 pounds. 4. Hypertensive heart disease with history of congestive heart failure, resolved. 5. Personal history of multiple thrombolic events. 6. Osteoarthritis of bilateral knees secondary to morbid obesity, resolved. 7. Obstructive sleep apnea, resolved. 8. Bilateral lower extremity edema, resolved 9. Osteoarthritis of lower back secondary to morbid obesity. 10. Gastroesophageal reflux disease, resolved. 11. Status post sleeve gastrectomy. 12. Iron-deficiency anemia. 13. Panniculitis. 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 Benefits and risks of surgery were reviewed for panniculectomy. 2. Possible overnight stay for pain control. 3. Eliquis stopped 2 days before day of surgery. 4. Drain management reviewed. 5. Time of recovery 6 to 8 weeks. 6. DVT prophylaxis. 7. Antibiotic prophylaxis. 8. Risks including flap failure, seroma, pain, infection, and drain placement were reviewed. Past Medical History Past Medical History: Deep Vein Thrombosis (DVT), Fibromyalgia, GERD/Reflux, Hyperlipidemia, Pulmonary Embolus (PE), Rheumatoid Arthritis (RA) Additional Past Medical History / Comment(s): low back pain,PE and multiple blood clots in 2013 and 2014 PAST HYPERTENSION History of Any Multi-Drug Resistant Organisms: None Reported Past Surgical History: Bariatric Surgery, Section, Cholecystectomy, Joint Replacement, Tubal Ligation Additional Past Surgical History / Comment(s): bilateral knee replacements, cyst removed from head, scope on left knee before knee replacement, Sleeve gastrectomy on 02/13/2016 Past Anesthesia/Blood Transfusion Reactions: No Reported Reaction Additional Past Anesthesia/Blood Transfusion Reaction / Comment(s): HAD BLOOD TRANSFUSION POST 2ND KNEE REPLACEMENT, NO REACTION Smoking Status: Former smoker - Past Family History Father History Unknown: Yes Additional Family Medical History / Comment(s): father passed when patient was 5 Mother History Unknown: Yes Family Medical History: No Reported History Additional Family Medical History / Comment(s): mother passed when patient was 10 years old Medications and Allergies Home Medications Medication Instructions Recorded Confirmed Type Omeprazole 40 mg PO AC-BRKFST #90 cap 02/14/16 10/08/17 Rx Calcium Citrate 250 mg PO DAILY 08/15/16 10/08/17 History Multivitamin [Multivitamins Adult 1 each PO DAILY 08/15/16 10/08/17 History Gummies] Apixaban [Eliquis] 2.5 mg PO BID 10/08/17 10/08/17 History Allergies Allergy/AdvReac Type Severity Reaction Status Date / Time environmental AdvReac Unknown Uncoded 10/08/17 09:24
[~2017-10-14 10:10] MED LIST: ACETAMINOPHEN IV (For NPO) 1,000 MG in EMPTY BAG 1 BAG IVPB ONE; DEXAMETHASONE SOD PHOSPHATE 10 MG/ML 1 ML VIAL IV ONE; LACTATED RINGERS 1,000 ML IV SCH; MIDAZOLAM 2 MG/2 ML VIAL IV PRN; ONDANSETRON 4 MG/2 ML VIAL IVP ONE; SCOPOLAMINE 1.5MG/72HR PATCH TRANSDERM ONE; ceFAZolin IN SWFI 2 GM/20 ML SYRINGE IVP ONE; fentaNYL (PF) 50 MCG/ML 2 ML AMP IV PRN
[2017-10-14] MEDS ORDERED: LIDOCAINE 1% 20 ML VIAL (10MG/ML) FOR IV START INTRADERMA ONE (11:38)
[2017-10-14] MEDS ORDERED: HEPARIN SODIUM,PORCINE 5,000 UNIT/ML 1 ML VIAL SQ STA (12:22)
[2017-10-14] MEDS ORDERED: LACTATED RINGERS 1,000 ML IV ONE ×2 (14:09→15:16)
[2017-10-14] MEDS ORDERED: MORPHINE SULFATE 4 MG/ML SYRINGE IVP PRN ×2 (15:16)
[2017-10-14] MEDS ORDERED: METOCLOPRAMIDE 5 MG/ML 2 ML VIAL IVP PRN (15:16)
[2017-10-14] MEDS ORDERED: ONDANSETRON 4 MG/2 ML VIAL IVP PRN (15:16)
[2017-10-14] MEDS ORDERED: NALOXONE 0.4 MG/ML 1 ML VIAL IV PRN (15:16)
[2017-10-14] MEDS ORDERED: TRIMETHOBENZAMIDE 100 MG/ML 2 ML VIAL IM PRN (15:16)
--- NOTE | 2017-10-14 15:16 | P.OP ---
Date of Procedure: 10/14/17 Description of Procedure: SURGEON: NEO SANTANA MD PREOPERATIVE DIAGNOSES: 1. Morbid obesity due to excess calories. 2. Body mass index reduced from 60.5 down to 21.2 3. Status post massive weight loss, 251 pounds. 4. Hypertensive heart disease with history of congestive heart failure, resolved. 5. Personal history of multiple thrombolic events. 6. Osteoarthritis of bilateral knees secondary to morbid obesity, resolved. 7. Obstructive sleep apnea, resolved. 8. Bilateral lower extremity edema, resolved 9. Osteoarthritis of lower back secondary to morbid obesity. 10. Gastroesophageal reflux disease, resolved. 11. Status post sleeve gastrectomy. 12. Iron-deficiency anemia. 13. Panniculitis. 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 Morbid obesity due to excess calories. 2. Body mass index reduced from 60.5 down to 21.2 3. Status post massive weight loss, 251 pounds. 4. Hypertensive heart disease with history of congestive heart failure, resolved. 5. Personal history of multiple thrombolic events. 6. Osteoarthritis of bilateral knees secondary to morbid obesity, resolved. 7. Obstructive sleep apnea, resolved. 8. Bilateral lower extremity edema, resolved 9. Osteoarthritis of lower back secondary to morbid obesity. 10. Gastroesophageal reflux disease, resolved. 11. Status post sleeve gastrectomy. 12. Iron-deficiency anemia. 13. Panniculitis. 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 Panniculectomy, 1.66 pounds. ANESTHESIA: General ESTIMATED BLOOD LOSS: 200 mL SPECIMENS REMOVED: Pannus 1.66 pounds. COMPLICATIONS: None. CONDITION: Stable. DRAINS: Two #19 Oren drains below abdominal flap extending through the pubis. OPERATIVE FINDINGS: 1. Pannus weighing 1.66 pounds, excised. INDICATIONS: Lamar Cardoso is a 62-year-old female who is status post sleeve gastrectomy February 13, 2016. She is now 1.5 years out. Her highest weight was 394 pounds. Today she comes in weighing 140 pounds. Her ideal body weight for her 5 feet 7-3/4-inch frame is 158 pounds. Percent excess weight loss is 108 %. Body mass index is reduced from 60.5 down to 21.2. She has lost 254 pounds. 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 She comes in for panniculectomy. 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 Given her clinical symptoms, including massive weight loss, she elected for surgical intervention with a panniculectomy. Benefits and risks of the procedure including bleeding, infection, risk of flap failure, abdominal wall seromas, chronic pain were described at length. Informed consent was obtained. DESCRIPTION: In the preanesthesia care unit the patient was marked with an indelible marker. She had also been given heparin subcutaneously. The patient was brought into the operating room and laid in supine position. After general induction, a Cunningham catheter was placed. The abdomen was then prepped and draped in standard sterile fashion using ChloraPrep. The skin was prepped as far laterally to the back, inferiorly to the upper thighs and superiorly to above the bilateral breasts. A timeout protocol was confirmed with the surgical team regarding patient's name , procedure to be performed, including preoperative medications. She had received Ancef 2 grams IV antibiotics. Once the time-out protocol was confirmed with the surgical team, the patient was re-marked with indelible marker whereby the midline of the xiphoid to the mons pubis was marked. The anterior/superior iliac spine along the bilateral hips was also marked. Approximately 8 cm above the pubis commissure a transverse incision was made for the inferior portion of the flap. Using a #10 blade, the incision was taken from the midline laterally to above the anterior/ superior iliac spine, initially on the left side of the patient and then on the right side of the patient. Electro-Bovie cautery was used to control for hemostasis. The dissection was taken down to the level of the fascia. Landmarks used were the xiphoid process as well as the bilateral costal margins for the superior margin. Care was taken to avoid any creation of dog ears during the dissection. Hemostasis was once again checked with electro-Bovie cautery and all defects were addressed. Attention was now brought to closure of the flap. Using stainless steel skin carrol, the midline was once again marked of the upper flap as well as the pubic commissure. The patient was placed in a flexed position of approximately 30 degrees at the hips. The pannus was extended inferiorly to the feet. The upper flap was created once the excess skin was excised. Again care was taken to avoid any dog ears along the lateral aspect of the incisions. Once excised, the pannus was weighed at 1.66 pounds. The upper and lower flaps were reapproximated at the midline and then laterally to the skin with skin carrol. Once reapproximated, the skin was closed in layers using 0 Vicryl for the superficial fascial system followed by running 3- 0 Monocryl for the deep dermis in a running subcuticular fashion. Prior to skin closure, two round #19 Oern drains were placed underneath the flap and brought out just inferior to the incision along the pubis. Drain stitch using 2-0 nylon was placed. Once the incision was closed, bulb suction was attached. Hemostasis was checked. At the end of the procedure, the needle, sponge and instrument count was verified correct. Exofin tape was placed along the length of the incision. Optifoam dressings were applied over the incision and used as a drain sponge. The patient was then transferred to a hospital bed in a beach chair position. An abdominal binder was placed and marked. The patient was taken to the postanesthesia care unit in stable condition, awake and extubated. Total time for procedure from skin to skin was 120 minutes.
[2017-10-14 16:43] VITALS: BMI 20.2
[2017-10-14] MEDS ORDERED: ACETAMINOPHEN IV (For NPO) 1,000 MG in EMPTY BAG 1 BAG IVPB ONE (17:00)
[2017-10-14 18:00] VITALS: RESP 18
[2017-10-14] MEDS: ceFAZolin IN SWFI 2 GM/20 ML SYRINGE IVP SCH (20:02)
[2017-10-14] MEDS: DOCUSATE 100 MG CAP PO SCH (20:02)
[2017-10-14] MEDS: HYDROcodone/APAP 5-325MG 1 EACH TAB PO PRN (20:05)
[2017-10-15] MEDS: HYDROcodone/APAP 5-325MG 1 EACH TAB PO PRN ×2 (00:52→06:37)
[2017-10-15] MEDS: ceFAZolin IN SWFI 2 GM/20 ML SYRINGE IVP SCH (03:50)
--- NOTE | 2017-10-15 08:27 | P.PN ---
Subjective Progress Note Date: 10/15/17 The patient is a 62 -year-old female who is doing very well. She is POD 1 s/p panniculectomy, 1.66 pounds. Pain is controlled. She is tolerating diet. Objective - Vital Signs Vital signs: Vital Signs Temp 97.6 F 10/14/17 23:00 Pulse 82 10/14/17 23:00 Resp 18 10/14/17 23:00 BP 110/63 10/14/17 23:00 Pulse Ox 98 10/14/17 23:00 Intake & Output 10/14/17 10/15/17 10/15/17 18:59 06:59 18:59 Intake Total 1750 1740 Output Total 580 860 Balance 1170 880 Weight 60.2 kg Intake: IV 1750 Oral 1740 Output: Drainage 60 110 ARNOLDO 1 20 60 ARNOLDO 2 40 50 Urine 320 750 Estimated Blood Loss 200 Other: Voiding Method Indwelling Catheter Indwelling Catheter - Exam ABDOMEN: Binder intact. Dressing clean, dry, and intact. ARNOLDO drains sanguinous serous. GENERAL: Well developed and in no acute distress. Pleasant. HEENT: No sclera icterus. Extraocular movements grossly intact. Moist buccal mucosa. Head is atraumatic, normocephalic. Hears conversational speech. No nasal drainage. NECK: Supple without lymphadenopathy. No JV distention. CHEST: Non-labored respirations and equal bilateral excursions. CARDIOVASCULAR: Regular rate and rhythm. Palpable 2+ radial pulses. MUSCULOSKELETAL: No clubbing, cyanosis or edema. NEUROLOGIC: No focal or lateralizing signs. PSYCH: Appropriate affect. Alert and oriented to person, place and time. - Labs CBC & Chem 7: 10/15/17 09:12 Assessment and Plan (1) S/P panniculectomy Status: Acute Code(s): Z98.890 - OTHER SPECIFIED POSTPROCEDURAL STATES SNOMED Code(s): 432806274 Plan: 1. Discharge today. Follow up in 3 days. 2. ARNOLDO care for home. 3. Discharge instructions reviewed: No lifting over 4 pounds in 4 weeks. No bathtub soaks. No shower. No stretching or twisting. Sleep in a recliner. DO NOT REMOVE DRESSINGS. DO NOT REMOVE BINDER. Keep record of ARNOLDO outputs daily. DO NOT START ELIQUIS UNTIL Saturday10/19/17
--- NOTE | 2017-10-15 08:28 | P.DS ---
Providers Date of admission: 10/14/17 10:10 Expected date of discharge: 10/15/17 Attending physician: Maribell Huffman Primary care physician: De Gonzalez - Discharge Diagnosis(es) (1) S/P panniculectomy Status: Acute Hospital Course: POSTOPERATIVE DIAGNOSES: 1. Morbid obesity due to excess calories. 2. Body mass index reduced from 60.5 down to 21.2 3. Status post massive weight loss, 251 pounds. 4. Hypertensive heart disease with history of congestive heart failure, resolved. 5. Personal history of multiple thrombolic events. 6. Osteoarthritis of bilateral knees secondary to morbid obesity, resolved. 7. Obstructive sleep apnea, resolved. 8. Bilateral lower extremity edema, resolved 9. Osteoarthritis of lower back secondary to morbid obesity. 10. Gastroesophageal reflux disease, resolved. 11. Status post sleeve gastrectomy. 12. Iron-deficiency anemia. 13. Panniculitis. 14. Skin elastosis INDICATIONS: Lamar Cardoso is a 62-year-old female who is status post sleeve gastrectomy February 13, 2016. She is 1.5 years out. Her highest weight was 394 pounds. Today she comes in weighing 140 pounds. Her ideal body weight for her 5 feet 7-3/4-inch frame is 158 pounds. Percent excess weight loss is 108 %. Body mass index is reduced from 60.5 down to 21.2. She has lost 254 pounds. 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 She comes in for panniculectomy. 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 Given her clinical symptoms, including massive weight loss, she elected for surgical intervention with a panniculectomy. Benefits and risks of the procedure including bleeding, infection, risk of flap failure, abdominal wall seromas, chronic pain were described at length. Informed consent was obtained. Postprocedure, her pain was controlled. ARNOLDO teaching was reviewed. Discharge instructions were described. Patient will follow-up in the bariatric Center in 4 days. Pertinent Studies: None. Procedures: OPERATION: 1. Panniculectomy, 1.66 pounds. ANESTHESIA: General ESTIMATED BLOOD LOSS: 200 mL SPECIMENS REMOVED: Pannus 1.66 pounds. COMPLICATIONS: None. CONDITION: Stable. DRAINS: Two #19 Oren drains below abdominal flap extending through the pubis. OPERATIVE FINDINGS: 1. Pannus weighing 1.66 pounds, excised. Patient Condition at Discharge: Stable Plan - Discharge Summary Discharge Rx Participant: Yes New Discharge Prescriptions: New HYDROcodone/APAP 5-325MG [[facility] 5-325] 1 tab PO Q6HR PRN #30 tab PRN Reason: Pain Continue Omeprazole 40 mg PO AC-BRKFST #90 cap Multivitamin [Multivitamins Adult Gummies] 1 tab PO DAILY Calcium Citrate 250 mg PO DAILY Apixaban [Eliquis] 2.5 mg PO BID Discharge Medication List Omeprazole 40 mg PO AC-BRKFST #90 cap 02/14/16 [Rx] Calcium Citrate 250 mg PO DAILY 08/15/16 [History] Multivitamin [Multivitamins Adult Gummies] 1 tab PO DAILY 08/15/16 [History] Apixaban [Eliquis] 2.5 mg PO BID 10/08/17 [History] HYDROcodone/APAP 5-325MG [Noble 5-325] 1 tab PO Q6HR PRN #30 tab 10/15/17 [Rx] Follow up Appointment(s)/Referral(s): Bariatric Center,. [NON-STAFF] - 10/18/17 9:30 am Patient Instructions/Handouts: [facility] Drain Care (DC), Panniculectomy ( DC) Activity/Diet/Wound Care/Special Instructions: No lifting over 4 pounds in 4 weeks. No bathtub soaks. No shower. No stretching or twisting. Sleep in a recliner. DO NOT REMOVE DRESSINGS. DO NOT REMOVE BINDER. Keep record of ARNOLDO outputs daily. ( see ARNOLDO instruction sheet) DO NOT START ELIQUIS UNTIL Saturday10/19/17 (confirm at recheck) Diet as tolerated. keep to no straws or carbonation unless otherwise instructed. (high protein, high calorie) call office for any fever,chills increased drainage to dressing or discolored drainage or redness around it.monitor J.P. drains. and empty as instructed . call for any sudden increase in bloody drainage or any concerns. Last received [facility] at 0630 Discharge Disposition: HOME SELF-CARE
[2017-10-15 08:29] VITALS: BP 112/66; PULSE 81; TEMP 98.3
[2017-10-15] MEDS: DOCUSATE 100 MG CAP PO SCH (08:38)
[2017-10-15] MEDS ORDERED: PANTOPRAZOLE 40 MG/10 ML VIAL IV SCH (09:00)
[2017-10-15] MEDS ORDERED: ENOXAPARIN 30 MG/0.3 ML SYRINGE SQ SCH (09:00)
[2017-10-15 09:26] LABS: HCT 34.9 % (34.0-46.0); HGB 11.5 gm/dL (11.4-16.0); MCHC 33.1 g/dL (31.0-37.0); MCV 93.9 fL (80.0-100.0); Mean Platelet Volume 7.1; Platelet Count 172 k/uL (150-450); RBC 3.72 m/uL (3.80-5.40); RDW 12.5 % (11.5-15.5); WBC 6.1 k/uL (3.8-10.6)
== END 2017-10-15 10:15 | disposition home or self-care (01) | DRG 607 ==
LOC: 2ORMAIN 10:10 → 6PED 15:30
PROVIDERS: ADMIT Surgery Plastic and Reconstructive Surgery; ATTEND Surgery Plastic and Reconstructive Surgery
PROC: 0HB7XZZ Excision of Abdomen Skin, External Approach (ICD-10-PCS; principal; 2017-10-14 11:25)
DX: M79.3 Panniculitis, unspecified (principal); M79.7 Fibromyalgia; M47.9 Spondylosis, unspecified; M06.9 Rheumatoid arthritis, unspecified; D50.9 Iron deficiency anemia, unspecified; Z79.01 Long term (current) use of anticoagulants; Z79.899 Other long term (current) drug therapy; Z87.891 Personal history of nicotine dependence; Z98.84 Bariatric surgery status; Z96.653 Presence of artificial knee joint, bilateral; Z86.711 Personal history of pulmonary embolism; Z98.51 Tubal ligation status; Z90.49 Acquired absence of other specified parts of digestive tract; Z86.718 Personal history of other venous thrombosis and embolism; Z82.49 Family history of ischemic heart disease and other diseases of the circulatory system
CPT/HCPCS: 85027

== ENCOUNTER → 2017-10-18 | Outpatient (CLI) | payer BC ==
[2017-10-18 10:32] VITALS: BP 125/62; PULSE 77; TEMP 98.3; BMI 21.2
[2017-10-18 10:40] LABS: HCT 37.3 % (34.0-46.0); HGB 12.4 gm/dL (11.4-16.0); MCH 31.7 pg (25.0-35.0); MCHC 33.3 g/dL (31.0-37.0); Mean Platelet Volume 7.1; Platelet Count 188 k/uL (150-450); RBC 3.93 m/uL (3.80-5.40); RDW 12.4 % (11.5-15.5); WBC 4.1 k/uL (3.8-10.6)
[2017-10-18 10:50] LABS: Partial Thromboplastin Time 22.2 sec (22.0-30.0); Prothrombin Time 9.5 sec (9.0-12.0)
[2017-10-18 10:57] LABS: ALT 63 U/L (9-52); AST 51 U/L (14-36); Albumin 4.1 g/dL (3.5-5.0); Alkaline Phosphatase 48 U/L (38-126); Anion Gap 11 mmol/L; Blood Urea Nitrogen 20 mg/dL (7-17); Calcium 9.5 mg/dL (8.4-10.2); Carbon Dioxide 27 mmol/L (22-30); Chloride 102 mmol/L (98-107); Cholesterol 162 mg/dL (<200); Glucose 72 mg/dL (74-99); HDL Cholesterol 94 mg/dL (40-60); LDL Cholesterol,Calculated 54 mg/dL (0-99); Phosphorus 3.9 mg/dL (2.5-4.5); Potassium 4.2 mmol/L (3.5-5.1); Sodium 140 mmol/L (137-145); Total Bilirubin 0.3 mg/dL (0.2-1.3); Total Protein 6.4 g/dL (6.3-8.2); Triglycerides 68 mg/dL (<150)
--- NOTE | 2017-10-18 13:32 | P.PN ---
Subjective Progress Note Date: 10/18/17 HPI: Patient status post panniculectomy removal of 2 pounds of skin, 2017. Pain well controlled. No nausea and vomiting. No signs of [place] infection. Objective - Vital Signs Vital signs: Vital Signs Temp 98.3 F 10/18/17 10:25 Pulse 77 10/18/17 10:25 Resp BP 125/62 10/18/17 10:25 Pulse Ox Intake & Output 10/17/17 10/18/17 10/18/17 18:59 06:59 18:59 Weight 62.686 kg - Labs CBC & Chem 7: 10/18/17 10:08 10/18/17 10:08 Labs: Abnormal Lab Results - Last 24 Hours (Table) 10/18/17 Range/Units 10:08 BUN 20 H (7-17) mg/dL Glucose 72 L (74-99) mg/dL AST 51 H (14-36) U/L ALT 63 H (9-52) U/L HDL Cholesterol 94 H (40-60) mg/dL TSH 0.252 L (0.465-4.680) mIU/L
[2017-10-18 15:50] LABS: Iron Saturation 18.62 (12.00-45.00)
[2017-10-18 16:01] LABS: Parathyroid Hormone Intact 51.6 pg/mL (14.0-72.0); Vitamin D 25 Hydroxy 34.7 ng/mL (30.0-100.0)
[2017-10-18 16:03] LABS: Folate, Serum 21.5 ng/mL
[2017-10-18 19:24] LABS: Hemoglobin A1C 5.1 % (4.0-6.0)
[2017-10-21 12:17] LABS: Zinc, Serum 77 ug/dL (60-130)
[2017-10-22 06:17] LABS: Vitamin A 48 ug/dL (38-106)
[2017-10-22 09:22] LABS: Vitamin B1 54 ug/L (38-122)
== END | disposition home or self-care (01) ==
LOC: BARWHC3 09:20
PROVIDERS: ATTEND Surgery Plastic and Reconstructive Surgery
DX: Z48.817 Encounter for surgical aftercare following surgery on the skin and subcutaneous tissue (principal); Z98.890 Other specified postprocedural states
CPT/HCPCS: 36415; 80053; 80061; 82306; 82525; 82607; 82728; 82746; 83036; 83540; 83550; 83735; 83970; 84100; 84134; 84255; 84425; 84443; 84590; 84630; 85027; 85610; 85730; 99212

== ENCOUNTER → 2017-10-23 | Outpatient (CLI) | payer BC ==
--- NOTE | 2017-10-23 14:15 | P.PN ---
Subjective Progress Note Date: 10/23/17 HPI: She is s/p panniculectomy. She has lost another 4 pounds. ABDOMEN: No infection. ARNOLDO is still sanguinous serous. PLAN: 1. ARNOLDO is still over 20 mL. 2. Plan for removal of at least 1 drain at [place]. 3. Follow up at bariatric center in November 06.
[2017-10-23 14:16] VITALS: BP 111/55; PULSE 67; RESP 14; TEMP 98.6; BMI 20.6
== END | disposition home or self-care (01) ==
LOC: BARWHC3 13:03
PROVIDERS: ATTEND Surgery Plastic and Reconstructive Surgery
DX: Z09 Encounter for follow-up examination after completed treatment for conditions other than malignant neoplasm (principal); Z98.890 Other specified postprocedural states
CPT/HCPCS: 99212

== ENCOUNTER → 2017-11-06 | Outpatient (CLI) | payer BC ==
--- NOTE | 2017-11-06 13:22 | P.PN ---
Subjective Progress Note Date: 11/06/17 DATE OF SERVICE: 11/06/2017 HPI: She feels well. No abdominal pain. No fevers or chills. ABDOMEN: Dressing removed. PLAN: 1. Can shower. 2. Ok to return to work November 25. 3. Follow-up. DATE OF SERVICE: 10/23/2017 CHIEF COMPLAINT: Follow-up panniculectomy HISTORY OF PRESENT ILLNESS: Lamar Cardoso is a 62-year-old female who is status post sleeve gastrectomy February 13, 2016. She is now 1.5 years out. Her highest weight was 394 pounds. Today she comes in weighing 134 pounds from 138 pounds since her last visit 10/02/2017. She has lost 4 pounds in 3 weeks. Her ideal body weight for her 5 feet 7-3/4-inch frame is 158 pounds. Percent excess weight loss is 110 %. Body mass index is reduced from 60.5 down to 20.6. She has lost 260 pounds. She is s/p panniculectomy . PHYSICAL EXAM: VITAL SIGNS: 5-foot 7-3/4-inche frame, 134 pounds. Body mass index 20.6 Vital Signs Temp 98.6 F 10/23/17 14:06 Pulse 67 10/23/17 14:06 Resp 14 10/23/17 14:06 BP 111/55 10/23/17 14:06 Pulse Ox ABDOMEN: Soft, nontender, nondistended. No infection. ARNOLDO is still sanguinous serous. GENERAL: Well-developed female no acute distress. HEENT: No scleral icterus. Extraocular movements grossly intact. Moist buccal mucosa. NECK: Supple without lymphadenopathy. CHEST: Nonlabored respirations. Equal bilateral excursions. CARDIOVASCULAR: Regular rate, regular rhythm. 2+ radial pulses. MUSCULOSKELETAL: No bilateral pitting edema. No clubbing or cyanosis. NEURO: No focal or lateralizing signs. Cranial nerves II-12 grossly intact. PSYCH: Appropriate affect. Alert and oriented to person, place and time. SKIN: Well performed. Good skin turgor. ASSESSMENT: 1. Morbid obesity due to excess calories. 2. Body mass index reduced from 60.5 down to 20.6 3. Status post massive weight loss, 260 pounds. 4. Hypertensive heart disease with history of congestive heart failure, resolved. 5. Personal history of multiple thrombolic events. 6. Osteoarthritis of bilateral knees secondary to morbid obesity, resolved. 7. Obstructive sleep apnea, resolved. 8. Bilateral lower extremity edema, resolved 9. Osteoarthritis of lower back secondary to morbid obesity. 10. Gastroesophageal reflux disease, resolved. 11. Status post sleeve gastrectomy. 12. Iron-deficiency anemia. 13. Panniculitis. 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 Status post panniculectomy PLAN: 1. ARNOLDO is still over 20 mL. 2. Plan for removal of at least 1 drain at [place]. 3. Follow up at bariatric center in November 06.
--- NOTE | 2017-11-06 13:24 | P.PN ---
Progress Note - Text Progress Note Date: 11/06/17 To whom it may concern: Lamar Cardoso is under my medical care. She may return to work November 25, 2017 without restrictions. Regards, Maribell Huffman MD, FACS, [facility]
[2017-11-06 13:44] VITALS: BP 118/68; PULSE 65; TEMP 98.8; BMI 20.9
== END | disposition home or self-care (01) ==
LOC: BARWHC3 12:57
PROVIDERS: ATTEND Surgery Plastic and Reconstructive Surgery
DX: Z48.817 Encounter for surgical aftercare following surgery on the skin and subcutaneous tissue (principal); E66.01 Morbid (severe) obesity due to excess calories; R63.4 Abnormal weight loss; I11.0 Hypertensive heart disease with heart failure; I50.9 Heart failure, unspecified; M47.9 Spondylosis, unspecified; M79.3 Panniculitis, unspecified; D50.9 Iron deficiency anemia, unspecified; L57.8 Other skin changes due to chronic exposure to nonionizing radiation; Z98.84 Bariatric surgery status; Z86.718 Personal history of other venous thrombosis and embolism; Z68.20 Body mass index [BMI] 20.0-20.9, adult
CPT/HCPCS: 99212